=== PATIENT | male | born 1985 | race Caucasian/White ===

== ENCOUNTER 2018-03-26 21:21 | Emergency (ER) | payer OTHER ==
[~2018-03-26] VITALS: Ht 182.9 cm; Wt 88.9 kg
[2018-03-26 22:13] VITALS: BP 143/83
== END 2018-03-26 23:11 | disposition home or self-care (01) ==
LOC: ER 21:21
DX: S05.8X1A Other injuries of right eye and orbit, initial encounter (principal); X58.XXXA Exposure to other specified factors, initial encounter; Y93.89 Activity, other specified; Y99.8 Other external cause status; Y92.89 Other specified places as the place of occurrence of the external cause